=== PATIENT | female | born 1980 | race Caucasian/White ===

== ENCOUNTER 2019-12-05 02:37 | Outpatient (CLI) | payer OTHER, SELFPAY ==
[2019-12-05 18:39] LABS: SARS-CoV-2 RNA PCR Negative
== END 2019-12-05 02:38 | disposition home or self-care (01) ==
LOC: ANHCOVIDDT 02:37
PROVIDERS: PCP Physician Assistant; Visit Provider Internal Medicine Gastroenterology
DX: Z01.812 Encounter for preprocedural laboratory examination (principal); Z20.828 Contact with and (suspected) exposure to other viral communicable diseases
CPT/HCPCS: 87635; C9803; U0003

== ENCOUNTER 2019-12-07 00:09 | Day surgery (SDC) | payer OTHER, SELFPAY ==
[2019-11-29 12:27] VITALS: BMI 36.3
--- NOTE | 2019-12-07 07:28 | WPDANESEPPF ---
Anes - Initial Pre Proc Eval Procedure: Operation Date: 12/07/19 08:30 Proposed Procedures p Colonoscopy - Edilberto Chow MD Date/Time: 12/07/19 07:28 Surgeon: Edilberto Chow MD Pre Op Diagnosis: Constipation Patient Data Age: 38 Gender: F Height: 1.68 m Weight: 102 kg Allergies Allergy/AdvReac Type Severity Reaction Status Date / Time No Known Allergies Allergy Unknown Unverified 12/07/19 07:37 Home Medications Medication Instructions Recorded Confirmed Type docusate sodium 100 mg PO DAILY PRN 11/29/19 11/29/19 History levothyroxine 125 mcg PO DAILY 11/29/19 11/29/19 History lovastatin 40 mg PO QPM 11/29/19 11/29/19 History norgestimate-ethinyl estradiol 1 tablet PO DAILY 11/29/19 11/29/19 History [Tri Femynor] Patient hx anesthesia problems: none Family hx anesthesia problems: none [facility] Past Medical History Medical History (Updated 12/07/19 @ 07:29 by Krishan Coto MD) Hypercholesterolemia Hypothyroidism Obesity Family History Family History (Updated 11/24/17 @ 14:06 by DOCTOR UNKNOWN) Father Hypertension Social History Social History Smoking status: Never smoker Alcohol intake: never Gender identity (if verbalized by the patient): Female Anes - Eval Final PreProcedure Day of Procedure 12/07/19 07:28 Patient weight: obese Heart: regular rate and rhythm Lungs: clear to auscultation and normal air movement Airway: Mallampati scale class II Neurological: alert and oriented Last oral intake: >/= 8 hours ASA classification: III Emergent: no Anesthetic plan: proceed Anesthesia type and monitoring: general GIVS Informed Consent: The patient's anesthetic plan and its attendant risks and benefits were discussed with the patient/family/POA. Questions were solicited and answers provided to the satisfaction of the patient/family/POA.
[2019-12-07] MEDS: LACTATED RINGERS 1,000 ML 150 ML IV CONT (07:36)
[2019-12-07 07:37] VITALS: BP 112/75; PULSE 105; RESP 16; O2SAT 100; BMI 35.5
--- NOTE | 2019-12-07 08:47 | WPDGICN ---
Assessment and Plan Assessment and plan (1) Rectal pain: Code(s): K62.89 - Other specified diseases of anus and rectum Status: Acute Assessment and Plan: Rectal pain appears to be consistent with rectal spasms. Plan is for stool softeners a colonoscopy to evaluate more thoroughly. Further recommendations after endoscopy. (2) Constipation: Code(s): K59.00 - Constipation, unspecified Status: Acute Assessment and Plan: Patient is a change in bowel habits with constipation more frequently. Currently advised to take Colace on a daily basis. Further recommendations may be given after endoscopy. GI Consult Note Consult date/time: 12/07/19 08:47 HPI: Clarissa Cortés is a 38 year old female seen in evaluation at the request of BRITTANIE Willis. Patient complains of a 6 month history of rectal spasms. Rectal pain that is intense at times occurs intermittently. She states often this occurs shortly after a bowel movement. She also notes associated constipation that occurs at 1 time a month. She denies any bleeding. She denies any weight loss. Her family history is noncontributory. Review of Systems Review of Systems: All systems reviewed & are unremarkable except as noted in HPI and below PMFSH Past Medical History Medical History Hypercholesterolemia Hypothyroidism Obesity Family History Family History Father Hypertension Social History Social History Smoking status: Never smoker Alcohol intake: never Gender identity (if verbalized by the patient): Female Meds Home Medications and Allergies Home Medications Medication Instructions Recorded Confirmed Type docusate sodium 100 mg PO DAILY PRN 11/29/19 11/29/19 History levothyroxine 125 mcg PO DAILY 11/29/19 11/29/19 History lovastatin 40 mg PO QPM 11/29/19 11/29/19 History norgestimate-ethinyl estradiol 1 tablet PO DAILY 11/29/19 11/29/19 History [Tri Femynor] Allergies Allergy/AdvReac Type Severity Reaction Status Date / Time No Known Allergies Allergy Unknown Unverified 12/07/19 07:37 Vital Signs Vital Signs - 24 hr 08/21/20 07:37 Pulse Rate 105 H Respiratory Rate 16 Blood Pressure 112/75 Pulse Oximetry 100 Exam Narrative: Exam Narrative: Physical exam reveals patient to be alert. Vital signs stable. HEENT exam unremarkable. Lungs are clear to auscultation and percussion. Heart is without murmur or extra sounds. Abdominal exam bowel sounds are present soft nontender with no organomegaly. Digital external rectal exam is unremarkable.
[2019-12-07] MEDS: SIMETHICONE ORAL SUSPENSION 20 MG/0.3 ML 30 ML BOTTLE 0.6 ML IRRIGATION (09:17)
[2019-12-07 09:20] VITALS: BP 112/69; PULSE 84; RESP 14; O2SAT 98
[2019-12-07 09:30] VITALS: BP 119/72; PULSE 84; RESP 14; O2SAT 98
[2019-12-07 09:40] VITALS: BP 116/72; PULSE 84; RESP 15; O2SAT 100
== END 2019-12-07 09:51 | disposition home or self-care (01) ==
PROVIDERS: PCP Physician Assistant; Visit Provider Internal Medicine Gastroenterology
PROC: 0DJD8ZZ Inspection of Lower Intestinal Tract, Via Natural or Artificial Opening Endoscopic (ICD-10-PCS; CPT 45378; principal; 2019-12-07 08:30)
DX: K62.89 Other specified diseases of anus and rectum (principal); K59.00 Constipation, unspecified; K64.8 Other hemorrhoids; E78.00 Pure hypercholesterolemia, unspecified; E03.9 Hypothyroidism, unspecified; E66.9 Obesity, unspecified; Z68.35 Body mass index [BMI] 35.0-35.9, adult
CPT/HCPCS: 45378; J2704; J7120

== ENCOUNTER 2020-10-18 10:41 | Outpatient (CLI) | payer OTHER, SELFPAY ==
[2020-10-21 20:06] LABS: Triiodothyronine T3 Free 2.1 pg/mL (2.3-4.2)
[2020-10-21 20:39] LABS: Thyroid Peroxidase Antibodies 387 IU/mL (<9)
== END 2020-10-18 10:42 | disposition home or self-care (01) ==
PROVIDERS: PCP Physician Assistant; Visit Provider Advanced Practice Midwife
DX: E03.9 Hypothyroidism, unspecified (principal)
CPT/HCPCS: 36415; 84481; 86376

== ENCOUNTER 2022-02-16 07:42 | Outpatient (CLI) | payer OTHER, SELFPAY ==
--- NOTE | ~2022-02-16 | MM_ITS ---
EXAMINATION: MM screening sebastian BI w ashlie HISTORY: Screening TECHNIQUE: Craniocaudal and mediolateral oblique 3-D tomosynthesis images were obtained and synthetic 2-D images were generated. CAD analysis was submitted and interpreted. COMPARISON: No prior mammogram is available for comparison at this institution. BREAST PARENCHYMAL COMPOSITION: The breasts are heterogeneously dense, which may obscure small masses FINDINGS: There are asymmetries in the left breast. There are no suspicious masses, calcifications or architectural distortion in the right breast to suggest malignancy. IMPRESSION: 1. Left breast asymmetries. 2. Recommend comparison to outside mammograms. BI-RADS Category 0: Incomplete: Needs additional imaging evaluation. Reviewed, dictated and finalized at location A.
== END 2022-02-16 07:43 | disposition home or self-care (01) ==
PROVIDERS: PCP Physician Assistant; Visit Provider Advanced Practice Midwife
DX: Z12.31 Encounter for screening mammogram for malignant neoplasm of breast (principal); R92.8 Other abnormal and inconclusive findings on diagnostic imaging of breast
CPT/HCPCS: 77063; 77067

== ENCOUNTER 2022-03-09 13:52 | Outpatient (CLI) | payer OTHER, SELFPAY ==
--- NOTE | ~2022-03-09 | MM_ITS ---
EXAMINATION: MM diagnostic sebastian LT w ashlie HISTORY: Focal asymmetries reported in lower inner quadrant of left breast, middle third on 02/16/2022 screening mammogram TECHNIQUE: Additional 3-D tomosynthesis images of the left breast were performed and synthetic 2-D im ages were generated. CAD analysis was submitted and interpreted. COMPARISON: 02/16/2022 bilateral screening mammogram FINDINGS: No suspicious reproducible mass or architectural distortion is detected. IMPRESSION: 1. No mammographic evidence of malignancy 2. Routine annual mammographic screening is recommended BI-RADS Category 1: Negative Reviewed, dictated and finalized at location A. [employer]
== END 2022-03-09 13:53 ==
LOC: MICIMG 14:00
PROVIDERS: PCP Advanced Practice Midwife; Visit Provider Advanced Practice Midwife
DX: R92.8 Other abnormal and inconclusive findings on diagnostic imaging of breast (principal)
CPT/HCPCS: 77061; 77065; G0279

== ENCOUNTER 2023-01-27 07:58 | Outpatient (CLI) | payer OTHER, SELFPAY | END 2023-01-27 07:59 | disposition home or self-care (01) | LOC: ANHAUDASC 07:58 | PROVIDERS: PCP Advanced Practice Midwife; Visit Provider Otolaryngology | DX: H90.3 Sensorineural hearing loss, bilateral (principal) | CPT/HCPCS: 92557; 92567 ==

== ENCOUNTER 2023-09-02 07:50 | Outpatient (CLI) | payer OTHER, SELFPAY | END 2023-09-02 07:51 | disposition home or self-care (01) | LOC: ANHAUDASC 07:59 | PROVIDERS: PCP Advanced Practice Midwife; Visit Provider Otolaryngology | DX: H90.6 Mixed conductive and sensorineural hearing loss, bilateral (principal); I65.23 Occlusion and stenosis of bilateral carotid arteries | CPT/HCPCS: 92557; 92567 ==

== ENCOUNTER 2023-10-07 07:30 | Outpatient (RCR) | payer SELFPAY | END 2023-12-22 23:59 | disposition home or self-care (01) | LOC: ANHAUDASC 07:30 | PROVIDERS: PCP Advanced Practice Midwife; Visit Provider Otolaryngology | DX: Z46.1 Encounter for fitting and adjustment of hearing aid (principal) | CPT/HCPCS: 99199; V5261 ==

== ENCOUNTER 2024-09-27 22:06 | Emergency (ER) | payer OTHER, SELFPAY ==
--- NOTE | ~2024-09-27 | CT_ITS ---
CT abdomen pelvis wo con Ordering provider: Abhijit Jeffery MD History: 43 years Female with . flank pain . Comparison: None. Technique: CT abdomen and pelvis without IV and without oral contrast. Automated exposure control and iterative reconstruction technique were employed. The dose-length product was 1354.61 mGy-cm. Findings: VISUALIZED LOWER CHEST: Bilateral dependent atelectatic changes UPPER ABDOMINAL ORGANS: Liver: Hepatomegaly. Gallbladder: Normal. Spleen: Normal. Stomach/duodenum: Normal. Pancreas: Normal. Adrenals: Normal. Kidneys: 5 mm lower ureteric stone with left hydroureter and moderate hydronephrotic changes. Stones are also seen in the left kidney lower pole with the largest measures 6 mm. PELVIC ORGANS: The bladder is underfilled. Uterus: Normal. There is BOWEL AND MESENTERY: Colon: No evidence of diverticulitis. Normal appendix. Small Bowel: Normal. No obstruction. Peritoneum/mesentery: No free air or free fluid. No mesenteric lymphadenopathy. RETROPERITONEUM: Normal aorta. No retroperitoneal lymphadenopathy. MUSCULOSKELETAL: Superficial soft tissues: The superficial soft tissues are normal. Bones: Age appropriate degenerative changes of the spine. Bilateral sacroiliacs. Bilateral hip osteoa rthritic changes. IMPRESSION: 1. Left lower ureteric stone with moderate hydronephrotic changes. 2. Stones in the left kidney. 3. Hepatomegaly. Reviewed, dictated and finalized at location A.
--- OUTSIDE RECORDS SUMMARY | 2024-09-27 22:09 | XMS_ITS | Data Portability ---
Author Organization [facility] José Sharon Address [address] [place] [address] Care Team Providers Care Site Identification Specialist Name Role Phone GINGER CHAPARRO Primary Care Provider Unavailab le Assessment Encounter Date Assessment Date Assessment LastModified by Organization Details LastModified Time 02/29/2024 02/29/2024 pap smear UTD [address] [facility] [facility]. Mammogram due still. ordered by [facility] eye exam: 2022 dentist exam: due. Not available 02/29/2024 09:32:24 Plan of Treatment Reminders Order Date Submit Date Provider Last Modified By Organization Details Last Modified Time Details Appointments ANY 15 2024 07:30A M BRITTANIE Ram Not available Not available Not available Lab HbA1c (hemoglob in A1c), blood 2023 024 [email or web address] [facility], [address] [facility], [facility], [place], [address], 05/24/2024 16:46:33 insulin, serum 2023 024 [email or web address] [facility], [address] [facility], [facility], [place], [address], 05/24/2024 16:46:24 CMP, serum or plasma 2023 024 [email or web address] [facility], [address] [facility], [facility], [place], [address], 05/24/2024 16:46:48 CBC w/ auto diff 2023 024 [email or web address] [facility], [address] [facility], [place], [address], 05/24/2024 16:46:43 TSH + free T4, serum 2023 024 [email or web address] [facility], [address] [facility], [address], [place], [address], 05/24/2024 16:46:29 lipid panel, serum 2023 024 [email or web address] [facility], [address] [facility], [address], [place], [address], 05/24/2024 16:46:53 CMP, serum or plasma 2023 024 DOUGLAS [facility], [address], [place], [address], 08/24/2023 03:36:48 CBC w/ auto diff 2023 024 DOUGLAS [facility], [address] [facility], [facility], [place], [address], 08/24/2023 03:36:49 HbA1c (hemoglob in A1c), blood 2023 024 DOUGLAS [facility], [address] [facility], [address], [place], [address], 08/24/2023 03:36:48 TSH + free T4, serum 2023 024 DOUGLAS [facility], [address] [facility], [facility], [place], [address], 08/24/2023 03:36:47 lipid panel, serum 2023 024 DOUGLAS [facility], [address], [address], [place], [address], 08/24/2023 03:36:47 TSH + free T4, serum 2014 015 [email or web address] [facility], [address], [address], [place], [address], 02/06/2015 17:31:37 Referral None recorded. Procedures None recorded. Surgeries None recorded. Imaging None recorded. Medication Orders atorvasta tin 80 mg tablet 2023 024 [id number], [address] [facility], [place], [address], 07/22/2023 16:53:05 levothyro xine 100 mcg tablet 2014 015 [email or web address] [id number], [address] [facility] [facility], [place], [address], 07/22/2023 16:27:39 Patient TargetsNo targets recorded. Patient Instructions Encounter Date Encounter Id Patient Instructions Last Modified By Organization Details Last Modified Time 02/06/2015 [id number] hypothyroidism: care instructions [email or web address] Not available 02/06/2015 17:31:43 02/04/2016 [id number] She said that sh e already had TEDp and 2 doses MMR vaccintions. [email or web address] Not available 02/04/2016 18:23:08 02/29/2024 [id number] A healthy lifestyle: care instructions Not available 02/29/2024 09:36:15 Reason for Referral None Reported. Results Created Date Observation Date Name Description Value Unit Range Abnormal Flag Note LastModifiedBy Organization Detail LastModifiedTime 08/23/1908/24/2023 TSH+F REE T4 TSH 8.250 uIU/m L 0.450- 4.500 above high normal Not Available [facility] ([facility]) [address] [place], [address], 08/24/2023 03:36:47 08/23/1908/24/2023 TSH+F REE T4 T4,free(dire ct) 1.10 NG/dL 0.82-1 .77 Not Available [facility] ([facility]) [address] [place], [address], 08/24/2023 03:36:47 08/23/19 24 08/24/2023 LIPID PANEL cholesterol, total 152 mg/dL 100-19 9 Not Available [facility] ([facility]) [address] [facility], [address], 08/24/2023 03:36:47 08/23/19 24 08/24/2023 LIPID PANEL triglyceride s 158 mg/dL 0-149 above high normal Not Available [facility] ([facility]) [address] [facility] [place], [address], 08/24/2023 03:36:47 08/23/19 24 08/24/2023 LIPID PANEL HDL cholesterol 47 mg/dL >39 Not Available [facility] ([facility]) [address] [facility] [place], [address], 08/24/2023 03:36:47 08/23/19 24 08/24/2023 LIPID PANEL VLDL cholesterol edwrad 27 mg/dL 5-40 Not Available [facility] ([facility]) [address] [place], [address], 08/24/2023 03:36:47 08/23/19 24 08/24/2023 LIPID PANEL LDL chol calc ([facility]) 78 mg/dL 0-99 Not Available [facility] ([facility]) [address] [facility], [address], 08/24/2023 03:36:47 08/23/19 24 08/24/2023 COMP. METAB OLIC PANEL (14) glucose 110 mg/dL 70-99 above high normal Not Available [facility] ([facility]) [address] [facility] [place], [address], 08/24/2023 03:36:48 08/23/19 24 08/24/2023 COMP. METAB OLIC PANEL (14) BUN 14 mg/dL 6-24 Not Available [facility] ([facility]) [address] [place], [address], 08/24/2023 03:36:48 08/23/19 24 08/24/2023 COMP. METAB OLIC PANEL (14) creatinine 0.83 mg/dL 0.57-1 .00 Not Available [facility] ([facility]) [address] [facility], [place], [address], 08/24/2023 03:36:48 08/23/19 24 08/24/2023 COMP. METAB OLIC PANEL (14) eGFR 89 mL/mi n/1.7 3 >59 Not Available [facility] ([facility]) [address] [facility], [place], [address], 08/24/2023 03:36:48 08/23/19 24 08/24/2023 COMP. METAB OLIC PANEL (14) BUN/creatini ne ratio 17 9-23 Not Available [facility] ([facility]) [address] [facility], [place], [address], 08/24/2023 03:36:48 08/23/19 24 08/24/2023 COMP. METAB OLIC PANEL (14) sodium 143 mmol/ L 134-14 4 Not Available [facility] ([facility]) [address] [place], [address], 08/24/2023 03:36:48 08/23/19 24 08/24/2023 COMP. METAB OLIC PANEL (14) potassium 4.2 mmol/ L 3.5-5. 2 Not Available [facility] ([facility]) [address] [facility], [place], [address], 08/24/2023 03:36:48 08/23/19 24 08/24/2023 COMP. METAB OLIC PANEL (14) chloride 106 mmol/ L 96-106 Not Available [facility] ([facility]) [address] [facility], [place], [address], 08/24/2023 03:36:48 08/23/19 24 08/24/2023 COMP. METAB OLIC PANEL (14) carbon dioxide, total 25 mmol/ L 20-29 Not Available [facility] ([facility]) [address] [facility], [address], 08/24/2023 03:36:48 08/23/19 24 08/24/2023 COMP. METAB OLIC PANEL (14) calcium 9.2 mg/dL 8.7-10 .2 Not Available [facility] ([facility]) [address] [facility], [place], [address], 08/24/2023 03:36:48 08/23/19 24 08/24/2023 COMP. METAB OLIC PANEL (14) protein, total 7.0 g/dL 6.0-8. 5 Not Available [facility] ([facility]) [address], [place], [address], 08/24/2023 03:36:48 08/23/19 24 08/24/2023 COMP. METAB OLIC PANEL (14) albumin 4.3 g/dL 3.9-4. 9 Not Available [facility] ([facility]) [address] [facility], [address], 08/24/2023 03:36:48 08/23/19 24 08/24/2023 COMP. METAB OLIC PANEL (14) globulin, total 2.7 g/dL 1.5-4. 5 Not Available [facility] ([facility]) [address] [facility], [address], 08/24/2023 03:36:48 08/23/19 24 08/24/2023 COMP. METAB OLIC PANEL (14) A/G ratio 1.6 1.2-2. 2 Not Available [facility] ([facility]) [address] [facility], [address], 08/24/2023 03:36:48 08/23/19 24 08/24/2023 COMP. METAB OLIC PANEL (14) bilirubin, total 0.7 mg/dL 0.0-1. 2 Not Available [facility] ([facility]) [address] [place], [address], 08/24/2023 03:36:48 08/23/19 24 08/24/2023 COMP. METAB OLIC PANEL (14) alkaline phosphatase 51 IU/L 44-121 Not Available [facility] ([facility]) [address] [place], [address], 08/24/2023 03:36:48 08/23/19 24 08/24/2023 COMP. METAB OLIC PANEL (14) AST (SGOT) 17 IU/L 0-40 Not Available [facility] ([facility]) [address] [facility], [place], [address], 08/24/2023 03:36:48 08/23/19 24 08/24/2023 COMP. METAB OLIC PANEL (14) ALT (SGPT) 27 IU/L 0-32 Not Available [facility] ([facility]) [address] [place], [address], 08/24/2023 03:36:48 08/23/19 24 08/24/2023 HEMOG LOBIN A1C hemoglobin A1C 5.9 % 4.8-5. 6 above high normal Predi abete s: 5.7 - 6.4 Diabe leonardo: >6.4 Glyce celina contr ol for adult s with diabe leonardo: <7.0 Not Available [facility] ([facility]) [address] [place], [address], 08/24/2023 03:36:48 08/23/19 24 08/24/2023 CBC WITH DIFFE RENTI AL/PL ATELE T WBC 4.4 x10e3 /uL 3.4-10 .8 Not Available [facility] ([facility]) [address] [place], [address], 08/24/2023 03:36:49 08/23/19 24 08/24/2023 CBC WITH DIFFE RENTI AL/PL ATELE T RBC 4.57 x10e6 /uL 3.77-5 .28 Not Available [facility] ([facility]) [address] [place], [address], 08/24/2023 03:36:49 08/23/19 24 08/24/2023 CBC WITH DIFFE RENTI AL/PL ATELE T hemoglobin 13.2 g/dL 11.1-1 5.9 Not Available [facility] ([facility]) [address] [place], [address], 08/24/2023 03:36:49 08/23/1908/24/2023 CBC WITH DIFFE RENTI AL/PL ATELE T hematocrit 41.0 % 34.0-4 6.6 Not Available [facility] ([facility]) [address] [place], [address], 08/24/2023 03:36:49 08/23/1908/24/2023 CBC WITH DIFFE RENTI AL/PL ATELE T MCV 90 fL 79-97 Not Available [facility] ([facility]) [address] [place], [address], 08/24/2023 03:36:49 08/23/1908/24/2023 CBC WITH DIFFE RENTI AL/PL ATELE T MCH 28.9 pg 26.6-3 3.0 Not Available [facility] ([facility]) [address] [place], [address], 08/24/2023 03:36:49 08/23/1908/24/2023 CBC WITH DIFFE RENTI AL/PL ATELE T MCHC 32.2 g/dL 31.5-3 5.7 Not Available [facility] ([facility]) [address] [place], [address], 08/24/2023 03:36:49 08/23/19 24 08/24/2023 CBC WITH DIFFE RENTI AL/PL ATELE T RDW 13.1 % 11.7-1 5.4 Not Available [facility] ([facility]) [address] [facility], [place], [address], 08/24/2023 03:36:49 08/23/19 24 08/24/2023 CBC WITH DIFFE RENTI AL/PL ATELE T platelets 184 x10e3 /uL 150-45 0 Not Available [facility] ([facility]) [address] [facility], [place], [address], 08/24/2023 03:36:49 08/23/19 24 08/24/2023 CBC WITH DIFFE RENTI AL/PL ATELE T neutrophils 62 % notest ab. Not Available [facility] ([facility]) [address] [facility], [place], [address], 08/24/2023 03:36:49 08/23/19 24 08/24/2023 CBC WITH DIFFE RENTI AL/PL ATELE T lymphs 26 % notest ab. Not Available [facility] ([facility]) [address] [facility], [place], [address], 08/24/2023 03:36:49 08/23/19 24 08/24/2023 CBC WITH DIFFE RENTI AL/PL ATELE T monocytes 8 % notest ab. Not Available [facility] ([facility]) [address] [facility], [place], [address], 08/24/2023 03:36:49 08/23/19 24 08/24/2023 CBC WITH DIFFE RENTI AL/PL ATELE T eos 3 % notest ab. Not Available [facility] ([facility]) [address] [facility], [place], [address], 08/24/2023 03:36:49 08/23/19 24 08/24/2023 CBC WITH DIFFE RENTI AL/PL ATELE T basos 1 % notest ab. Not Available [facility] ([facility]) [address] [facility], [place], [address], 08/24/2023 03:36:49 08/23/19 24 08/24/2023 CBC WITH DIFFE RENTI AL/PL ATELE T neutrophils (absolute) 2.7 x10e3 /uL 1.4-7. 0 Not Available [facility] ([facility]) [address] [facility], [place], [address], 08/24/2023 03:36:49 08/23/19 24 08/24/2023 CBC WITH DIFFE RENTI AL/PL ATELE T lymphs (absolute) 1.1 x10e3 /uL 0.7-3. 1 Not Available [facility] ([facility]) [address] [facility], [place], [address], 08/24/2023 03:36:49 08/23/19 24 08/24/2023 CBC WITH DIFFE RENTI AL/PL ATELE T monocytes(ab solute) 0.3 x10e3 /uL 0.1-0. 9 Not Available [facility] ([facility]) [address] [facility], [place], [address], 08/24/2023 03:36:49 08/23/19 24 08/24/2023 CBC WITH DIFFE RENTI AL/PL ATELE T eos (absolute) 0.1 x10e3 /uL 0.0-0. 4 Not Available [facility] ([facility]) [address] [place], [address], 08/24/2023 03:36:49 08/23/19 24 08/24/2023 CBC WITH DIFFE RENTI AL/PL ATELE T baso (absolute) 0.0 x10e3 /uL 0.0-0. 2 Not Available [facility] ([facility]) [address] [place], [address], 08/24/2023 03:36:49 08/23/19 24 08/24/2023 CBC WITH DIFFE RENTI AL/PL ATELE T immature granulocytes 0 % notest ab. Not Available [facility] ([facility]) [address] [place], [address], 08/24/2023 03:36:49 08/23/19 24 08/24/2023 CBC WITH DIFFE RENTI AL/PL ATELE T immature grans (abs) 0.0 x10e3 /uL 0.0-0. 1 Not Available [facility] ([facility]) [address] [place], [address], 08/24/2023 03:36:49 06/26/19 25 06/26/2024 TSH+F REE T4 TSH 23.200 uIU/m L 0.450- 4.500 above high normal Not Available [facility] ([facility]) [address] [place], [address], 06/26/2024 11:08:20 06/26/19 25 06/26/2024 TSH+F REE T4 T4,free(dire ct) 1.06 NG/dL 0.82-1 .77 Not Available [facility] ([facility]) [address] [place], [address], 06/26/2024 11:08:20 06/26/19 25 06/26/2024 LIPID PANEL cholesterol, total 184 mg/dL 100-19 9 Not Available [facility] ([facility]) [address] [place], [address], 06/26/2024 11:08:21 06/26/19 25 06/26/2024 LIPID PANEL triglyceride s 215 mg/dL 0-149 above high normal Not Available [facility] ([facility]) [address] [place], [address], 06/26/2024 11:08:21 06/26/19 25 06/26/2024 LIPID PANEL HDL cholesterol 50 mg/dL >39 Not Available [facility] ([facility]) [address] [place], [address], 06/26/2024 11:08:21 06/26/19 25 06/26/2024 LIPID PANEL VLDL cholesterol edward 37 mg/dL 5-40 Not Available [facility] ([facility]) [address] [facility] [place], [address], 06/26/2024 11:08:21 06/26/19 25 06/26/2024 LIPID PANEL LDL chol calc ([facility]) 97 mg/dL 0-99 Not Available [facility] ([facility]) [address] [place], [address], 06/26/2024 11:08:21 06/26/19 25 06/26/2024 COMP. METAB OLIC PANEL (14) glucose 108 mg/dL 70-99 above high normal Not Available [facility] ([facility]) [address] [place], [address], 06/26/2024 11:08:22 06/26/19 25 06/26/2024 COMP. METAB OLIC PANEL (14) BUN 12 mg/dL 6-24 Not Available [facility] ([facility]) [address] [place], [address], 06/26/2024 11:08:22 06/26/19 25 06/26/2024 COMP. METAB OLIC PANEL (14) creatinine 0.89 mg/dL 0.57-1 .00 Not Available [facility] ([facility]) [address] [place], [address], 06/26/2024 11:08:22 06/26/19 25 06/26/2024 COMP. METAB OLIC PANEL (14) eGFR 81 mL/mi n/1.7 3 >59 Not Available [facility] ([facility]) [address] [place], [address], 06/26/2024 11:08:22 06/26/19 25 06/26/2024 COMP. METAB OLIC PANEL (14) BUN/creatini ne ratio 13 9-23 Not Available [facility] ([facility]) [address] [facility] [place], [address], 06/26/2024 11:08:22 06/26/19 25 06/26/2024 COMP. METAB OLIC PANEL (14) sodium 144 mmol/ L 134-14 4 Not Available [facility] ([facility]) [address] [facility] [place], [address], 06/26/2024 11:08:22 06/26/19 25 06/26/2024 COMP. METAB OLIC PANEL (14) potassium 4.5 mmol/ L 3.5-5. 2 Not Available [facility] ([facility]) [address] [facility], [place], [address], 06/26/2024 11:08:22 06/26/19 25 06/26/2024 COMP. METAB OLIC PANEL (14) chloride 103 mmol/ L 96-106 Not Available [facility] ([facility]) [address] [facility] [place], [address], 06/26/2024 11:08:22 06/26/19 25 06/26/2024 COMP. METAB OLIC PANEL (14) carbon dioxide, total 25 mmol/ L 20-29 Not Available [facility] ([facility]) [address] [facility] [place], [address], 06/26/2024 11:08:22 06/26/19 25 06/26/2024 COMP. METAB OLIC PANEL (14) calcium 9.4 mg/dL 8.7-10 .2 Not Available [facility] ([facility]) [address] [facility] [place], [address], 06/26/2024 11:08:22 06/26/19 25 06/26/2024 COMP. METAB OLIC PANEL (14) protein, total 7.3 g/dL 6.0-8. 5 Not Available [facility] ([facility]) [address] [place], [address], 06/26/2024 11:08:22 06/26/19 25 06/26/2024 COMP. METAB OLIC PANEL (14) albumin 4.5 g/dL 3.9-4. 9 Not Available [facility] ([facility]) [address] [facility], [address], 06/26/2024 11:08:22 06/26/19 25 06/26/2024 COMP. METAB OLIC PANEL (14) globulin, total 2.8 g/dL 1.5-4. 5 Not Available [facility] ([facility]) [address] [place], [address], 06/26/2024 11:08:22 06/26/19 25 06/26/2024 COMP. METAB OLIC PANEL (14) bilirubin, total 0.6 mg/dL 0.0-1. 2 Not Available [facility] ([facility]) [address] [place], [address], 06/26/2024 11:08:22 06/26/19 25 06/26/2024 COMP. METAB OLIC PANEL (14) alkaline phosphatase 69 IU/L 44-121 Not Available [facility] ([facility]) [address] [facility], [address], 06/26/2024 11:08:22 06/26/19 25 06/26/2024 COMP. METAB OLIC PANEL (14) AST (SGOT) 12 IU/L 0-40 Not Available [facility] ([facility]) [address] [place], [address], 06/26/2024 11:08:22 06/26/19 25 06/26/2024 COMP. METAB OLIC PANEL (14) ALT (SGPT) 19 IU/L 0-32 Not Available [facility] ([facility]) [address] [facility], [place], [address], 06/26/2024 11:08:22 06/26/19 25 06/26/2024 HEMOG LOBIN A1C hemoglobin A1C 5.9 % 4.8-5. 6 above high normal Predi abete s: 5.7 - 6.4 Diabe leonardo: >6.4 Glyce celina contr ol for adult s with diabe leonardo: <7.0 Not Available [facility] ([facility]) [address] [facility], [place], [address], 06/26/2024 11:08:24 06/26/19 25 06/26/2024 INSUL IN insulin 29.2 uIU/m L 2.6-24 .9 above high normal Not Available [facility] ([facility]) [address] [facility], [place], [address], 06/26/2024 11:08:25 06/26/19 25 06/26/2024 CBC WITH DIFFE RENTI AL/PL ATELE T WBC 5.0 x10e3 /uL 3.4-10 .8 Not Available [facility] ([facility]) [address] [facility], [place], [address], 06/26/2024 11:08:26 06/26/19 25 06/26/2024 CBC WITH DIFFE RENTI AL/PL ATELE T RBC 4.68 x10e6 /uL 3.77-5 .28 Not Available [facility] ([facility]) [address] [place], [address], 06/26/2024 11:08:26 06/26/19 25 06/26/2024 CBC WITH DIFFE RENTI AL/PL ATELE T hemoglobin 13.7 g/dL 11.1-1 5.9 Not Available [facility] ([facility]) [address] [place], [address], 06/26/2024 11:08:26 06/26/19 25 06/26/2024 CBC WITH DIFFE RENTI AL/PL ATELE T hematocrit 43.3 % 34.0-4 6.6 Not Available [facility] ([facility]) [address] [facility], [place], [address], 06/26/2024 11:08:26 06/26/19 25 06/26/2024 CBC WITH DIFFE RENTI AL/PL ATELE T MCV 93 fL 79-97 Not Available [facility] ([facility]) [address] [facility], [place], [address], 06/26/2024 11:08:26 06/26/19 25 06/26/2024 CBC WITH DIFFE RENTI AL/PL ATELE T MCH 29.3 pg 26.6-3 3.0 Not Available [facility] ([facility]) [address] [facility], [place], [address], 06/26/2024 11:08:26 06/26/19 25 06/26/2024 CBC WITH DIFFE RENTI AL/PL ATELE T MCHC 31.6 g/dL 31.5-3 5.7 Not Available [facility] ([facility]) [address] [place], [address], 06/26/2024 11:08:26 06/26/19 25 06/26/2024 CBC WITH DIFFE RENTI AL/PL ATELE T RDW 12.6 % 11.7-1 5.4 Not Available [facility] ([facility]) [address] [place], [address], 06/26/2024 11:08:26 06/26/19 25 06/26/2024 CBC WITH DIFFE RENTI AL/PL ATELE T platelets 239 x10e3 /uL 150-45 0 Not Available [facility] ([facility]) [address] [place], [address], 06/26/2024 11:08:26 06/26/19 25 06/26/2024 CBC WITH DIFFE RENTI AL/PL ATELE T neutrophils 61 % notest ab. Not Available [facility] ([facility]) [address] [facility], [place], [address], 06/26/2024 11:08:26 06/26/19 25 06/26/2024 CBC WITH DIFFE RENTI AL/PL ATELE T lymphs 29 % notest ab. Not Available [facility] ([facility]) [address] [facility], [place], [address], 06/26/2024 11:08:26 06/26/19 25 06/26/2024 CBC WITH DIFFE RENTI AL/PL ATELE T monocytes 5 % notest ab. Not Available [facility] ([facility]) [address] [facility], [place], [address], 06/26/2024 11:08:26 06/26/19 25 06/26/2024 CBC WITH DIFFE RENTI AL/PL ATELE T eos 3 % notest ab. Not Available [facility] ([facility]) [address] [facility], [place], [address], 06/26/2024 11:08:26 06/26/19 25 06/26/2024 CBC WITH DIFFE RENTI AL/PL ATELE T basos 1 % notest ab. Not Available [facility] ([facility]) [address] [place], [address], 06/26/2024 11:08:26 06/26/19 25 06/26/2024 CBC WITH DIFFE RENTI AL/PL ATELE T neutrophils (absolute) 3.1 x10e3 /uL 1.4-7. 0 Not Available [facility] ([facility]) [address] [facility], [place], [address], 06/26/2024 11:08:26 06/26/19 25 06/26/2024 CBC WITH DIFFE RENTI AL/PL ATELE T lymphs (absolute) 1.4 x10e3 /uL 0.7-3. 1 Not Available [facility] ([facility]) [address] [facility], [place], [address], 06/26/2024 11:08:26 06/26/19 25 06/26/2024 CBC WITH DIFFE RENTI AL/PL ATELE T monocytes(ab solute) 0.3 x10e3 /uL 0.1-0. 9 Not Available [facility] ([facility]) [address] [facility], [place], [address], 06/26/2024 11:08:26 06/26/19 25 06/26/2024 CBC WITH DIFFE RENTI AL/PL ATELE T eos (absolute) 0.2 x10e3 /uL 0.0-0. 4 Not Available [facility] ([facility]) [address] [facility], [place], [address], 06/26/2024 11:08:26 06/26/19 25 06/26/2024 CBC WITH DIFFE RENTI AL/PL ATELE T baso (absolute) 0.0 x10e3 /uL 0.0-0. 2 Not Available [facility] ([facility]) [address] [facility], [place], [address], 06/26/2024 11:08:26 06/26/19 25 06/26/2024 CBC WITH DIFFE RENTI AL/PL ATELE T immature granulocytes 1 % notest ab. Not Available [facility] ([facility]) [address] [facility], [place], [address], 06/26/2024 11:08:26 06/26/19 25 06/26/2024 CBC WITH DIFFE RENTI AL/PL ATELE T immature grans (abs) 0.0 x10e3 /uL 0.0-0. 1 Not Available [facility] ([facility]) [address] [facility], [place], [address], 06/26/2024 11:08:26 Result Notes None recorded. Problems Name Problem SNOMED Code Status Onset Date Resolution Date Notes Provider Name and Address Organization Details Recorded Time Hyperlipidemia 29812568 Active 2023 BRITTANIE Ram Attn: Jeremías ogden,[address] [facility], [place], [address], [facility] 4 00:48:25 Overactive urinary bladder [id number] Active 2023 BRITTANIE Ram Attn: Jeremías ogden,[address] [place], [address], [facility] 4 00:48:27 Long-term drug therapy Active 2023 BRITTANIE Ram Attn: Jeremías ogden,[address] [place], [address], [facility] 4 00:48:30 Obesity 785360526 Active 2023 BRITTANIE Ram Attn: Jeremías ogden,[address] [place], [address], [facility] 4 08:23:19 Body mass index 30+ - obesity 555629656 Active 2023 BRITTANIE Ram Attn: Jeremías ogden,[address] [place], [address], [facility] 4 08:23:19 Prediabetes 396987831 Active 2023 BRITTANIE Ram Attn: Jeremías ogden,[address] [place], [address], [facility] 4 08:23:56 Hypothyroidism 31140679 Active Riddhi Marc MD Attn: Jeremías ogden,[address] [place], [address], [facility] 5 16:59:49 Problem Notes None recorded. Procedures Surgical History Date Name Laterality Status Provider Name and Address Organization Details Recorded Time D & c after delivery completed Miguel Gross MA [facility] 07/22/2023 17:20:23 Imaging Results None recorded. Procedure Notes None recorded. Medical Equipment None Reported. Allergies No known drug allergies Medications Name Sig Start Date Stop Date Status Note LastModified by Organization Details LastModified Time levothyroxi ne 137 mcg tablet TAKE 1 TABLET BY MOUTH EVERY DAY active Not Available Not Available No t Available atorvastati n 80 mg tablet TAKE 1 TABLET BY MOUTH EVERY DAY active Not Available Not Available No t Available ofloxacin 0.3 % eye drops INSTILL 2 DROPS INTO THE EAR(S) THREE TIMES A DAY 07/21 completed Not Available Not Available Not Available methylpredn isolone 4 mg tablet TAKE 1 TABLET BY MOUTH TWICE A DAY 07/21 completed Not Available Not Available Not Available ciprofloxac in 500 mg tablet TAKE 1 TABLET EVERY 12 HOURS BY ORAL ROUTE, FOR UTI. active Not Available Not Available No t Available levothyroxi ne 100 mcg tablet TAKE ONE TABLET BY MOUTH ONCE DAILY 07/21 completed Not Available Not Available Not Available ofloxacin 0.3 % ear drops USE 2 DROPS IN LEFT EAR 4 TIMES DAILY FOR 7 DAYS 07/21 completed Not Available Not Available Not Available cephalexin 500 mg capsule TAKE 1 CAPSULE BY MOUTH EVERY 12 HOURS FOR 7 DAYS 07/21 completed Not Available Not Available Not Available clotrimazol e 1 % topical solution APPLY TOPICALLY 3 TIMES A DAY 07/21 completed Not Available Not Available Not Available progesteron e micronized 200 mg capsule IF TEST IS NEGATIVE TAKE 1 TAB X10 DAYS EVERY 3 MONTHS IF PERIOD DOES NOT OCCUR ON ITS OWN active Not Available Not Available No t Available amoxicillin 875 mg-potassiu m clavulanate 125 mg tablet TAKE 1 TABLET BY MOUTH TWICE A DAY 07/21 completed Not Available Not Available Not Available amoxicillin 500 mg-potassiu m clavulanate 125 mg tablet 07/21 completed Not Available Not Available Not Available neomycin-po lymyxin-hyd rocort 3.5 mg-10,000 unit/mL-1 % ear drops,susp PLACE 2 DROPS IN LEFT EAR 4 TIMES A DAY 07/21 completed Not Available Not Available Not Available ciprofloxac in 0.3 %-dexametha sone 0.1 % ear drops,suspe nsion INSTILL 4 DROPS INTO AFFECTED EAR(S) TWICE A DAY FOR 7 DAYS 07/21 completed Not Available Not Available Not Available Tri-Sprinte c (28) 0.18 mg(7)/0.215 mg(7)/0.25 mg(7)-0.035 mg tablet 07/21 completed Not Available Not Available Not Available solifenacin 10 mg tablet TAKE 1 TABLET BY MOUTH EVERY DAY active Not Available Not Available No t Available fluocinolon e acetonide oil 0.01 % ear drops PLACE 5 DROPS INTO THE EAR(S) EVERY NIGHT AT BEDTIME NEEDED FOR 7 DAYS-USE 1 WEEK ON/1 WEEK OFF 02/28 completed Not Available Not Available Not Available Vitals Date Recorded Oxygen saturation Oxygen saturation in Arterial blood by Pulse oximetry Body weight Heart rate Body mass index (BMI) Body height Body temperature Systolic blood pressure Diastolic blood pressure Provider Name and Address Organization Details Last Updated DateTime 5 99 % 99 % 96962.0 47706 g 107 /min 33.1 kg/m2 166.37 cm 97.6 [degF] 114 mm[Hg] 82 mm[Hg] Foster Bro MA [facility] 5 16:30:01 Date Recorded Systolic blood pressure Diastolic blood pressure Systolic blood pressure Diastolic blood pressure Provider Name and Address Organization Details Last Updated DateTime 07/22/2023 130 mm[Hg] 84 mm[Hg] 128 mm[Hg] 84 mm[Hg] BRITTANIE Ram Attn: Accounting ,[address] [place], [address] , [facility] 4 16:52:19 Date Recorded Body height Body mass index (BMI) Body weight Oxygen saturation Oxygen saturation in Arterial blood by Pulse oximetry Heart rate Respiratory rate Systolic blood pressure Diastolic blood pressure Provider Name and Address Organization Details Last Updated DateTime 4 165.1 cm 35.4 kg/m2 80505.1 7 g 97 % 97 % 108 /min 18 /min 118 mm[Hg] 88 mm[Hg] Miguel Gross MA [facility] 4 16:32:58 Date Recorded Body height Body weight Body mass index (BMI) Body temperature Oxygen saturation Oxygen saturation in Arterial blood by Pulse oximetry Heart rate Systolic blood pressure Diastolic blood pressure Provider Name and Address Organization Details Last Updated DateTime 6 166.37 cm 27528.0 3 g 33.8 kg/m2 98.1 [degF] 100 % 100 % 112 /min 118 mm[Hg] 86 mm[Hg] Foster Bro MA [facility] 6 17:36:38 Date Recorded Body weight Oxygen saturation Oxygen saturation in Arterial blood by Pulse oximetry Body height Body mass index (BMI) Body temperature Heart rate Systolic blood pressure Diastolic blood pressure Provider Name and Address Organization Details Last Updated DateTime 5 78590.7 92332 g 99 % 99 % 166.37 cm 32.7 kg/m2 98.2 [degF] 109 /min 106 mm[Hg] 78 mm[Hg] Foster Bro MA [facility] 5 16:03:14 Date Recorded Systolic blood pressure Diastolic blood pressure Provider Name and Address Organization Details Last Updated DateTime 02/29/2024 120 mm[Hg] 84 mm[Hg] BRITTANIE Ram Attn: Accounting,[address] [place], [address], [facility] 02/29/2024 09:37:13 Date Recorded Body height Body mass index (BMI) Body weight Respiratory rate Oxygen saturation Oxygen saturation in Arterial blood by Pulse oximetry Heart rate Systolic blood pressure Diastolic blood pressure Provider Name and Address Organization Details Last Updated DateTime 4 165.1 cm 35.4 kg/m2 22123.1 7 g 18 /min 97 % 97 % 110 /min 126 mm[Hg] 82 mm[Hg] Miguel Gross MA [facility] 4 09:16:17 Social History Question Answer Notes LastModified by Organizat ion Details LastModified Time Tobacco Smoking Status Never Smoker Foster Bro MA null, [facility] 06/25/2014 16:30:01 Do You Have An Advance Directive? No Information not available 07/22/2023 Are You Blind Or Do You Have Difficulty Seeing? No Glasses Information not available 07/22/2023 What Is Your Level Of Caffeine Consumption? Occasional DECAF TEA Information not available 07/22/2023 In The 14 Days Before Symptom Onset, Have You Had Close Contact With A Laboratory-confi rmed COVID-19 While That Case Was Ill? No Information not available 07/22/2023 In The 14 Days Before Symptom Onset, Have You Had Close Contact With A Person Who Is Under Investigation For COVID-19 While That Person Was Ill? No Information not available 07/22/2023 Have You Been To An Area Known To Be High Risk For COVID-19? No Information not available 07/22/2023 Are You Deaf Or Do You Have Serious Difficulty Hearing? No Pt. States That She Was Supposed To Have Hearing Aids Information not available 07/22/2023 What Type Of Diet Are You Following? REGULAR Information not available 07/22/2023 Are There Any Guns Present In Your Home? No Information not available 07/22/2023 What Was The Date Of Your Most Recent Tobacco Screening? 02/29/2024 Information not available 02/29/2024 What Is Your Relationship Status? Information not available 07/22/2023 Do You Use Your Seat Belt Or Car Seat Routinely? Yes Information not available 07/22/2023 Do You Have Smoke And Carbon Monoxide Detectors In Your Home? Yes Information not available 07/22/2023 Do You Use Sunscreen Routinely? No Information not available 07/22/2023 Has Tobacco Cessation Counseling Been Provided? No Information not available 07/22/2023 Sex: Female Functional Status Question Answer Note LastModified by Organizat ion Details LastModified Time Do you use any illicit or recreational drugs? No Information not available 07/22/2023 Do you or have you ever used any other forms of tobacco or nicotine? No Information not available 07/22/2023 What is your level of alcohol consumption? None Information not available 07/22/2023 Are you able to care for yourself? Yes Information n ot available 07/22/2023 What is your exercise level? Occasional Information not available 07/22/2023 Mental Status None recorded. Family History Relationship Description Onset Age of this Age Resolved Age Notes LastModified by Organization Details LastModified Time Brother Attention deficit hyperactivit y disorder [email or web address] Not available 07/21 17:20:36 Mother Hypertensive disorder [email or web address] Not available 2023 17:20:47 Mother Hypercholest erolemia tcarterma Not available 2023 17:20:59 Father Hypertensive disorder tcarterma Not available 2023 17:20:47 Father Hypercholest erolemia tcarterma Not available 2023 17:20:59 Medical History Condition Response Coronary Artery Disease N Other N High Blood Pressure N Atrial Fibrillation N Kidney or Bladder Problems N Thyroid Problems Y GI Problems N Depression N COPD N Blood Clots N Skin Problems N Anemia N Heart Attack (DC) N Anxiety Disorder N Diabetes N Muscle, Joint, or Bone Problems N Seizures/Epilepsy N Acid Reflux (GERD) N Cancer N Stroke N Asthma N Allergies N High Cholesterol Y Hepatitis N Liver Disease N Headaches N Heart Failure N Osteoporosis N Gynecological History Statement/Question Response Menses Monthly Y Flow Moderate Date of LMP 02/10/2024 LMP Approximate Obstetrics History GPAL:G 1 P 1 0 0 1 Type Value Multiple Births 0 Full Term 1 Induced 0 Spontaneous 0 Premature 0 Living 1 Total 1 Immunizations Vaccine Type Date Status Note Provider Nam e and Address Organization Details Recorded Time MMR 03/04/2015 completed SHERIF Wood, [place] - [facility] 02/28/2024 12:17:39 MMR 03/31/2015 SHERIF Martins, [place] - [facility] 02/28/2024 12:17:39 COVID-19, mRNA, LNP-S, PF, 30 mcg/0.3 mL dose 10/24/2020 SHERIF [place] [facility] 02/28/2024 12:17:39 COVID-19, mRNA, LNP-S, PF, 30 mcg/0.3 mL dose 11/14/2020 SHERIF [place] [facility] 02/28/2024 12:17:39 Tdap 03/04/2015 SHERIF [place], [place] [facility] 02/28/2024 12:17:39 Past Encounters Encounter ID Performer Location Encounter Start Date Encounter Closed Date Diagnosis/Indication Diagnosis SNOMED-CT Code Diagnosis ICD10 Code Diagnosis Note [id number] MD Quinn Lackey (Adult Med) [address] [place] [phone] 06/25/2014 15:50:12 06/26/2014 09:36:25 Adult health examination [id number] MD Quinn Lackey (Adult Med) [address] [place] [phone] 02/06/2015 15:43:57 02/06/2015 23:40:31 Adult health examination 204179422 Z00.00 Hypothyroidism 75599119 E03.9 [id number] MD Quinn Lackey (Adult Med) [address] [place] [phone] 02/04/2016 16:23:18 02/04/2016 18:22:23 History and physical examination, pre-employment 040313432 Z02.1 [id number] Juan Pablo Fernandes MD [facility] [employer] [address] [place] [phone] 07/22/2023 15:44:36 08/15/2023 15:49:38 Hypothyroidism 04429488 E03.9 stable on levothyrox ine 137mcg daily. due for updated TFT panel. Hyperlipidemia 95657624 E78.5 refill atorvastat in 80mg daily. fasting lipid panel is due Overactive urinary bladder 625700776 N32.81 stable on solifenaci n 10mg daily from Urology, Dr. Paredes Long-term drug therapy 236923016 Z79.899 routine cbc and cmp due Diabetes m ellitus screening 863464630 Z13.1 a1c annual screening due [id number] Juan Pablo Fernandes MD [employer] [address] [place] [phone] 02/29/2024 08:44:33 02/29/2024 13:15:47 Long-term drug therapy 222256464 Z79.899 CBC and CMP are due Hypothyroidism 28132861 E03.9 stable on levothyrox ine 137mcg daily. Due for updated thyroid function labs Hyperlipidemia 91430294 E78.5 refill atorvastat in 80mg daily. Fasting lipid panel due Body mass index 30+ - obesity 613125368 Z68.35 BMI is 35.4 Obesity 301889940 E66.9 discussed healthy diet, exercise, controllin g carbohydra leonardo and added sugars in the diet Prediabetes 115591460 R7 3.03 5.9% A1c on labs this summer. We have discussed decreasing simple carbs and added sugars in the diet to help to manage their prediabete s. Repeat A1c and fasting insulin due Overactive urinary bladder 477837486 N32.81 stable on solifenaci n 10mg daily from Urology, Dr. Paredes Adult [facility] th examination 699948920 Z00.01 annual wellness exam completed Health Concerns Section Related Observation LastModified by Organization Detai ls LastModified Time None Recorded Concern Status LastModified by Organization Details LastModified Time None Recorded Advance Directives Directive N: Payers Insurance Date Sequence Insurance Name Policy Number Policy Mosher Covered Member ID Mosher Member ID Guarantor Name 07/27/2023 1 [facility] [employer] [facility] [id number] [facility] 07/22/2023 1 [facility] [id number] [facility] [id number] [facility] 03/19/2024 1 [facility] [id number] [facility] [id number] [facility] Notes Date Note Type Note Provider Name and Address Organization Details Recorded Time 5 text/html 1. PE for the day care. 2. refillsof medications. Riddhi Marc MD Attn: Accounting,[address] [place], [address], [facility] 02/06/2015 17:00:14 4 text/html HyperlipidemiaReported bypatient.Notes:pt is stable on atorvastatin 80mg daily. due for fasting labs. she is taking medication as directedThyroidReported bypatient.Notes:pt is taking levothyroxine 137mcg daily. due for labs. pt takes medication for overactive bladder from the gyne. stable. noted improvement. BRITTANIE Ram Attn: Accounting,[address] [place], [address], [facility] 08/14/2023 00:49:38 4 text/html HyperlipidemiaReported bypatient.Notes:pt is stable on atorvastatin 80mg daily. due for fasting labs. she is taking medication as directedThyroidReported bypatient.Notes:pt is taking levothyroxine 137mcg daily. due for labs. pt takes medication for overactive bladder from the gyne. stable. noted improvement. BRITTANIE Ram Attn: Accounting,[address] [facility], [place], [address], [facility] 03/16/2024 15:51:40 OBGyn Episode No OBEpisode recorded.
--- OUTSIDE RECORDS SUMMARY | 2024-09-27 22:09 | XMS_ITS | Data Portability ---
Author Organization [place] - [facility], Main Office Address [address] [place] [address] Assessment Encounter Date Assessment Date Assessment LastModified by Organization Details LastModified Time 07/05/2022 07/05/2022 mammogram managed by gyne and repeat left was normal with dense tissue. Not available 07/05/2022 17:11:31 01/10/2023 01/10/2023 mammogram managed by gyne and repeat left was normal with dense tissue. Not available 01/10/2023 17:04:35 Plan of Treatment Reminders Order Date Submit Date Provider Last Modified By Organization Details Last Modified Time Details Appointments None recorded. Lab HbA1c (hemoglobin A1c), blood 2022 023 [email or web address] [facility], [address] [place] [address], [id number], 4 10:21:48 CMP, serum or plasma 2022 023 [email or web address] [facility], [address] [place] [address], [address], 4 10:21:48 CBC w/ auto diff 2022 023 [email or web address] [facility], [address] [place] [address], [address], 4 10:21:48 lipid panel, serum 2022 023 [email or web address] [facility], [address] [place] [address], [address], 4 10:21:48 TSH + free T4, serum 2022 023 [email or web address] [facility], [address] [place] [address], [address], 4 10:21:47 urinalysis, dipstick 2022 023 [email or web address] 9 [facility], [address] [facility] [address], [place], [address], 3 09:19:49 culture, urine 2022 023 [facility], [address] [place] [address], [address], 3 05:01:58 urinalysis, microscopic 2022 023 [facility], [address] [place], [address], 3 15:12:33 urinalysis, dipstick 2022 023 [email or web address] 9 [facility], [address] [facility] [address], [address], 3 11:27:13 HbA1c (hemoglobin A1c), blood 2022 023 [email or web address] [facility], [address] [place] [address], [address], 3 10:58:54 CMP, serum or plasma 2022 023 [email or web address] [facility], [address] [place] [address], [address], 3 10:59:08 lipid panel, serum 2022 023 [email or web address] [facility], [address] [place] [address] 2, [place], [address], 3 10:59:01 TSH + free T4, serum 2022 023 [email or web address] [facility], [address] [facility] [address], [place], [address], 3 14:46:37 Referral None recorded. Procedures None recorded. Surgeries None recorded. Imaging US, bladder 2022 023 [email or web address] 9 [facility] [place] [facility], [address] [facility] [address], [place], [address], 3 09:19:49 US, bladder 2022 023 [email or web address] 9 [facility] [address] [facility] [address], [place], [address], 3 11:27:14 Medication Orders solifenacin 10 mg tablet 2022 023 [facility] #[id number], [address] [place], [address], 3 09:20:08 solifenacin 10 mg tablet 2022 023 [facility] #[id number], [address] [place], [address], 3 10:45:43 Patient TargetsNo targets recorded. Patient InstructionsNo instructions recorded. Reason for Referral None Reported. Results Created Date Observation Date Name Description Value Unit Range Abnormal Flag Note LastModifiedBy Organization Detail LastModifiedTime 08/28/1908/27/2022 urina lysis , dipst ick Leukocytes (reference range: negative amandeep/ l) Negati ve Not Available [facility] [address] [facility] [address], [place], [address], 08/27/2022 09:03:39 08/28/19 23 08/27/2022 urina lysis , dipst ick Nitrite (reference rage: negative mg/dl) negati ve Not Available [facility] [address] [facility] [address], [place], [address], 08/27/2022 09:03:39 08/28/19 23 08/27/2022 urina lysis , dipst ick Urobilinogen (reference range: 0.2-1 mg/dl) 1 Not Available [facility] [address] [facility], [place], [address], 08/27/2022 09:03:39 08/28/1908/27/2022 urina lysis , dipst ick Protein (reference range: negative mg/dl) Negati ve Not Available [facility] [address] [facility], [place], [address], 08/27/2022 09:03:39 08/28/1908/27/2022 urina lysis , dipst ick pH (reference range: 5-7) 6.0 Not Available [facility]_ [facility] [address] [place] [address] [address] [facility], [place], [address], 08/27/2022 09:03:39 08/28/1908/27/2022 urina lysis , dipst ick Blood (reference range: negative Randolph/ l) Non-He molyze d: Trace Not Available [facility] [address] [place] [address] [address] [facility], [place], [address], 08/27/2022 09:03:39 08/28/19 23 08/27/2022 urina lysis , dipst ick Specific [place] (reference range: 1.005-1.030) 1.025 Not Available s _[facility] [address] [place] [address] [address], [place], [address], 08/27/2022 09:03:39 08/28/1908/27/2022 urina lysis , dipst ick Ketone (reference range: negative mg/dl) Negati ve Not Available [facility] [address], [place], [address], 08/27/2022 09:03:39 08/28/19 23 08/27/2022 urina lysis , dipst ick Bilirubin (reference range: negative mg/dl) Negati ve Not Available [facility] [address], [place], [address], 08/27/2022 09:03:39 08/28/1908/27/2022 urina lysis , dipst ick Glucose (reference range: negative mg/dl) Negati ve Not Available [facility] [address], [place], [address], 08/27/2022 09:03:39 08/28/19 23 08/27/2022 urina lysis , dipst ick Appearance Clear Not Available [facility] [address] [place] [address] [address], [place], [address], 08/27/2022 09:03:39 08/28/1908/27/2022 urina lysis , dipst ick Color Yellow Not Available [facility] [address], [place], [address], 08/27/2022 09:03:39 10/09/19 23 10/08/2022 urina lysis , dipst ick Leukocytes (reference range: negative amandeep/ l) Negati ve Not Available [facility] [address], [place], [address], 10/08/2022 09:00:00 10/09/1910/08/2022 urina lysis , dipst ick Nitrite (reference rage: negative mg/dl) negati ve Not Available [facility] [address], [place], [address], 10/08/2022 09:00:00 10/09/1910/08/2022 urina lysis , dipst ick Urobilinogen (reference range: 0.2-1 mg/dl) 0.2 Not Available [facility] [address], [place], [address], 10/08/2022 09:00:00 10/09/1910/08/2022 urina lysis , dipst ick Protein (reference range: negative mg/dl) Negati ve Not Available [facility] [address], [place], [address], 10/08/2022 09:00:00 10/09/1910/08/2022 urina lysis , dipst ick pH (reference range: 5-7) 6.0 Not Available s_ [facility] [address], [place], [address], 10/08/2022 09:00:00 10/09/1910/08/2022 urina lysis , dipst ick Blood (reference range: negative Randolph/ l) Non-He molyze d: Trace Not Available [facility] [address], [place], [address], 10/08/2022 09:00:00 10/09/1910/08/2022 urina lysis , dipst ick Specific [place] (reference range: 1.005-1.030) 1.020 Not Available [facility] [address] [facility] [address], [place], [address], 10/08/2022 09:00:00 10/09/19 23 10/08/2022 urina lysis , dipst ick Ketone (reference range: negative mg/dl) Negati ve Not Available [facility] [address] [facility], [place], [address], 10/08/2022 09:00:00 10/09/19 23 10/08/2022 urina lysis , dipst ick Bilirubin (reference range: negative mg/dl) Negati ve Not Available [facility] [address] [facility] [address], [place], [address], 10/08/2022 09:00:00 10/09/19 23 10/08/2022 urina lysis , dipst ick Glucose (reference range: negative mg/dl) Negati ve Not Available [facility] [address] [facility], [place], [address], 10/08/2022 09:00:00 10/09/19 23 10/08/2022 urina lysis , dipst ick Appearance Clear Not Available [facility] [address] [facility], [place], [address], 10/08/2022 09:00:00 10/09/19 23 10/08/2022 urina lysis , dipst ick Color Yellow Not Available [facility] [place] [facility] [address] [facility], [place], [address], 10/08/2022 09:00:00 03/04/20 22 02/16/2022 MAMMO , scree nancy, digit al, bilat eral No observ ation record ed. [id number] [place] [address] [address], [place], [address], 06/16/2022 10:47:53 08/28/19 23 08/27/2022 US, bladd er No observ ation record ed. [facility] [address], [place], [address], 08/30/2022 17:15:38 10/09/19 23 10/08/2022 US, bladd er No observ ation record ed. [email or web address] [facility] [address] [facility] [address], [place], [address], 10/11/2022 15:24:53 Result Notes None recorded. Problems Name Problem SNOMED Code Status Onset Date Resolution Date Notes Provider Name and Address Organization Details Recorded Time Intermitt ent dysphagia 34686024 Active 2021 Not Available [facility] 3 10:44:23 Gastroeso phageal reflux disease without esophagit is 216172066 Active 2021 BREONNA Griffin, [place] [employer] [facility] 3 14:55:15 Neck swelling 629593156 Active 2021 Not Available [facility] 3 10:44:24 Lower urinary tract symptoms 657726301 Active 2021 Not Available [facility] 3 10:44:24 Hypothyro idism 36773085 Active 2019 Not Available [facility] 3 10:44:24 Acute urinary tract infection 552094957 Active 2021 Not Available [employer] 3 10:44:24 Hyperlipi demia 70502537 Active 2019 Not Available [facility] 3 10:44:24 Eosinophi lic esophagit is caused by food 551450681 Active 2020 Resolved after eliminati on of gluten and milk- after 6 weeks of this diet, patient is to have EGD done to see if eosinophi lic has resolved Not Available [facility] 3 10:44:24 Impaired glucose tolerance 2165736 Active 2022 BRITTANIE Ram [address] [facility], [address], [place], [address] , [employer] 3 17:09:47 Increased frequency of urination 977681052 Active 2022 Noah Calles NP [address] [facility], [address], [place], [address] , [email or web address] [facility] 3 09:03:36 Abnormal urinalysi s 001433626 Active 2022 Noha Calles NP [address] [facility], [address], [place], [address] , [employer] 3 11:24:10 Urinary tract infection caused by Klebsiell a 22017476437 9100 Active 2022 Noah Calles NP [address] [facility], [address], [place], [address] , [employer] 3 15:23:09 Otitis externa of left ear 45159679059 89051 Active 2022 BRITTANIE Ram [address] [facility], [address] [facility], [place], [address] , [employer] 3 16:01:37 Problem Notes None recorded. Procedures Surgical History Date Name Laterality Status Provider Name and Address Organization Details Recorded Time 12/07/19 20 Date of Last Colonoscopy completed Not Available [facility] 06/16/2022 10:41:32 Imaging Results None recorded. Procedure Notes None recorded. Medical Equipment None Reported. Allergies Allergen ID Allergen Name Allergen Category Reaction Reaction Severity Criticality Documentation Date Start Date Code Code System Note Provider Name and Address Organization Details Recorded Time 12366 wheat gluten extract food Not available Not available Not available 06/16/2022 19728 81 RxNorm Not Available [facility] 3 10:47:34 Medications Name Sig Start Date Stop Date Status Note LastModified by Organization Details LastModified Time levothyroxi ne 137 mcg tablet TAKE 1 TABLET BY MOUTH EVERY DAY active Not Available Not Available No t Available atorvastati n 80 mg tablet TAKE 1 TABLET BY MOUTH EVERY EVENING active Not Available Not Available No t Available rabeprazole 20 mg tablet,surjit yed release 12/15 completed Not Available Not Available Not Available fluconazole 150 mg tablet TAKE 1 TABLET BY MOUTH ONCE ONE DOSE 12/14 completed Not Available Not Available Not Available lovastatin 40 mg tablet TAKE 1 TABLET BY MOUTH EVERY DAY active Not Available Not Available No t Available acetaminoph en 300 mg-codeine 30 mg tablet TAKE 1 OR 2 TABLETS BY MOUTH EVERY 6 HOURS NEEDED FOR PAIN 10/23 completed Not Available Not Available Not Available ciprofloxac in 500 mg tablet TAKE 1 TABLET BY MOUTH EVERY 12 HOURS 08/27 completed Not Available Not Available Not Available omeprazole 40 mg capsule,del ayed release TAKE 1 CAPSULE BY MOUTH EVERY MORNING TAKE 1/2 TO 1 HOUR BEFORE BREAKFAST DAILY 12/15 completed Not Available Not Available Not Available levothyroxi ne 100 mcg tablet TAKE 1 TABLET BY MOUTH DAILY 10/23 completed Not Available Not Available Not Available ofloxacin 0.3 % ear drops USE 2 DROPS IN LEFT EAR 4 TIMES DAILY FOR 7 DAYS active Not Available Not Available No t Available cephalexin 500 mg capsule TAKE 1 CAPSULE BY MOUTH EVERY 12 HOURS FOR 7 DAYS 01/07 completed Not Available Not Available Not Available levothyroxi ne 125 mcg tablet TAKE 1 TABLET BY MOUTH EVERY DAY 04/25 completed Not Available Not Available Not Available levothyroxi ne 150 mcg tablet TAKE 1 TABLET BY MOUTH EVERY DAY 02/11 completed Not Available Not Available Not Available docusate sodium 100 mg capsule TAKE 1 CAPSULE BY MOUTH EVERY DAY 07/05 completed Not Available Not Available Not Available lovastatin 20 mg tablet TAKE 1 TABLET BY MOUTH EVERY DAY EVENING MEAL active Not Available Not Available No t Available cefdinir 300 mg capsule TAKE 1 CAPSULE BY MOUTH EVERY 12 HOURS FOR 7 DAYS 01/07 completed Not Available Not Available Not Available amoxicillin 875 mg-potassiu m clavulanate 125 mg tablet TAKE 1 TABLET BY MOUTH TWICE A DAY active Not Available Not Available No t Available neomycin-po lymyxin-hyd rocort 3.5 mg-10,000 unit/mL-1 % ear drops,susp PLACE 2 DROPS IN LEFT EAR 4 TIMES A DAY active Not Available Not Available No t Available ciprofloxac in 0.3 %-dexametha sone 0.1 % ear drops,suspe nsion INSTILL 4 DROPS INTO AFFECTED EAR(S) TWICE A DAY FOR 7 DAYS active Not Available Not Available No t Available nitrofurant oin monohydrate /macrocryst als 100 mg capsule TAKE 1 CAPSULE BY MOUTH EVERY 12 HOURS 12/14 completed Not Available Not Available Not Available solifenacin 10 mg tablet TAKE 1 TABLET BY MOUTH EVERY DAY active Not Available Not Available No t Available Gavilyte-C 240 gram-22.72 gram-6.72 gram-5.84 gram oral solution USE DIRECTED 12/09 completed Not Available Not Available Not Available Tri Femynor (28) 0.18 mg(7)/0.215 mg(7)/0.25 mg(7)-35 mcg tablet TAKE 1 TABLET BY MOUTH EVERY DAY active Not Available Not Available No t Available Vitals Date Recorded Body height Body mass index (BMI) Body weight Body temperature Heart rate Oxygen saturation Oxygen saturation in Arterial blood by Pulse oximetry Systolic blood pressure Diastolic blood pressure Provider Name and Address Organization Details Last Updated DateTime 3 168.91 cm 33.2 kg/m2 85491.8 1 g 97.6 [degF] 103 /min 98 % 98 % 120 mm[Hg] 82 mm[Hg] Karuna Boo RN [facility] 3 16:54:22 Date Recorded Body height Provider Name an d Address Organization Details Last Updated DateTime 08/27/2022 168.91 cm Ruma Bustillo MA [facility] [employer] 08/27/2022 10:54:12 Date Recorded Body mass index (BMI) Body weight Oxygen saturation Oxygen saturation in Arterial blood by Pulse oximetry Heart rate Body temperature Systolic blood pressure Diastolic blood pressure Provider Name and Address Organization Details Last Updated DateTime 3 33.4 kg/m2 49844.4 g 98 % 98 % 113 /min 98.4 [degF] 131 mm[Hg] 93 mm[Hg] BREONNA Guzman [facility] [employer] [facility] 3 11:00:23 Date Recorded Body height Body mass index (BMI) Body weight Heart rate Oxygen saturation Oxygen saturation in Arterial blood by Pulse oximetry Body temperature Provider Name and Address Organization Details Last Updated DateTime 3 168.91 cm 33.2 kg/m2 11492.8 1 g 107 /min 96 % 96 % 98.4 [degF] BREONNA Guzman [facility] [employer] 3 09:08:26 Date Recorded Body mass index (BMI) Body height Oxygen saturation Oxygen saturation in Arterial blood by Pulse oximetry Heart rate Respiratory rate Body temperature Body weight Systolic blood pressure Diastolic blood pressure Provider Name and Address Organization Details Last Updated DateTime 2 33 kg/m2 168.91 cm 98 % 98 % 108 /min 16 /min 97.8 [degF] 47281.4 9 g 118 mm[Hg] 78 mm[Hg] Not Available [facility] 3 10:42:21 Date Recorded Body mass index (BMI) Provider Name and Address Organization Details Last Updated DateTime 01/10/2023 33.5 kg/m2 BRITTANIE Ram [address] [place] [address], [facility] [address], [place], [address], [facility] 01/10/2023 17:03:49 Date Recorded Body height Body temperature Body weight Heart rate Oxygen saturation Oxygen saturation in Arterial blood by Pulse oximetry Systolic blood pressure Diastolic blood pressure Provider Name and Address Organization Details Last Updated DateTime 3 168.91 cm 97.7 [degF] 46271.9 9 g 89 /min 98 % 98 % 116 mm[Hg] 70 mm[Hg] Karuna Boo RN [facility] [employer] 3 16:58:14 Social History Question Answer Notes LastModified by Organizat ion Details LastModified Time Tobacco Smoking Status Never Smoker Not Available [facility] 06/16/2022 10:40:40 Do You Have An Advance Directive? No [id number] Information not available 06/16/2022 What Is Your Level Of Caffeine Consumption? Moderate [id number] Information not available 06/16/2022 In The 14 Days Before Symptom Onset, Have You Had Close Contact With A Laboratory-confirm ed COVID-19 While That Case Was Ill? No [id number] Information not available 06/16/2022 In The 14 Days Before Symptom Onset, Have You Had Close Contact With A Person Who Is Under Investigation For COVID-19 While That Person Was Ill? No [id number] Information not available 06/16/2022 What Type Of Diet Are You Following? REGULAR [id number] Information not available 06/16/2022 Have There Been Any Changes To Your Family Or Social Situation? No [id number] Information not available 06/16/2022 Are There Any Guns Present In Your Home? No [id number] Information not available 06/16/2022 Do You Use Insect Repellent Routinely? 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 No Information not available 07/02/2022 What Was The Date Of Your Most Recent Tobacco Screening? 10/08/2022 [email or web address] Information not available 10/08/2022 What Is Your Relationship Status? [id number] Information not available 06/16/2022 Do You Use Your Seat Belt Or Car Seat Routinely? Yes [id number] Information not available 06/16/2022 Do You Have Smoke And Carbon Monoxide Detectors In Your Home? Yes [id number].[id number] 3101 Information not available 06/16/2022 Do You Use Sunscreen Routinely? Yes [id number].[id number] 1713 Information not available 06/16/2022 Have You Recently Traveled Abroad? No MIGRATION.[id number] 3447 Information not available 06/16/2022 Do You Have Any Dietary Restrictions? No MIGRATION.[id number] 1042 Information not available 06/16/2022 Sex: Unknown Functional Status Question Answer Note LastModified by Organizat ion Details LastModified Time Do you use any illicit or recreational drugs? No [id number] Information not available 06/16/2022 Do you or have you ever used any other forms of tobacco or nicotine? No [id number] 35 Information not available 06/16/2022 What is your level of alcohol consumption? None [id number] 35 Information not available 06/16/2022 What is your exercise level? None [id number] 35 Information not available 06/16/2022 Mental Status None recorded. Family History Relationship Description Onset Age of this Age Resolved Age Notes LastModified by Organization Details LastModified Time Maternal Grandmother Malignant tumor of breast [id number] Not available 06/16/2022 10:41:37 Father Hyperlipidem ia [id number] Not available 06/16/2022 10:41:37 Father Hypertensive disorder [id number] Not available 06/16/2022 10:41:37 Unspecified Relation Heart disease [email or web address] Not available 2022 10:56:27 Father Kidney stone [email or web address] Not availa ble 08/27/2022 10:56:41 Medical History Condition Response HIGH CHOLESTEROL / HYPERLIPIDEMIA Y HYPOTHYROIDISM Y OBESITY Y ENT Y Gynecological History Statement/Question Response Menses Monthly Y Date of Last Pap 05/02/2018 Date of Last Mammogram 02/27/2019 Current Control Method BCPs Date of Last Colonoscopy 12/07/2019 Sexually Active? Y Obstetrics History GPAL:G 2 P 0 0 0 1 Type Value Living 1 Total 2 Immunizations Vaccine Type Date Status Note Provider Nam e and Address Organization Details Recorded Time COVID-19, mRNA, LNP-S, PF, 30 mcg/0.3 mL dose 11/14/2020 completed Not Available [employer] 10:47:28 Past Encounters Encounter ID Performer Location Encounter Start Date Encounter Closed Date Diagnosis/Indication Diagnosis SNOMED-CT Code Diagnosis ICD10 Code Diagnosis Note [id number] BRITTANIE Ram [facility] [place] [address] [address], [address] [place] [phone] 12/09/2020 00:00:00 12/14/2020 17:42:15 [id number] S_[facility] Surgery [address] [facility], [address] [place] [address] 02/23/2021 00:00:00 02/23/2021 14:36:44 [id number] [facility] [place] [address] [address], [address] [place] [phone] 12/15/2021 00:00:00 12/15/2021 18:57:47 [id number] BRITTANIE Ram [facility] [place] [address] [place] [address] 07/05/2022 16:39:50 07/05/2022 17:18:32 Hyperlipidemia 13148397 E78.5 stable on atorvastat in 80mg daily. fasting labs due in july. Hypothyroidism 62289775 E03.9 stable on levothyrox ine 137mcg daily. repeat labs in july Long-term drug therapy 000261187 Z79.899 Gastroesop hageal reflux disease without esophagitis 224632854 K21.9 stable on PRN OTC medication . Impaired g lucose tolerance 8684594 R73.03 following A1c [id number] Noah Calles NP [facility] [address] [place] [phone] 08/27/2022 10:28:57 08/27/2022 11:20:09 Increased frequency of urination 460846821 R35.0 UA neg for infection. PVR low. Discussed avoiding bladder irritants such as carbonated beverages, caffeine, spicy/acid ic foods, alcohol, and/or tobacco. Discussed meds vs PFPT. Patient elects trial of meds. Will start solifenaci n. Medication administra tion, use, and side effects discussed. Follow-up in 6 weeks. Abnormal urinalysis 1672 06417 R82.90 tr blood on urine dip. We discussed possible etiologies of hematuria including infection, stones, cancer/mal ignancy, benign tumors, and certain anatomic abnormalit ies. Checking culture and micro ua. If micro positive without infection will trigger hematuria work-up with upper tract imaging and cysto. [id number] TEMO [facility] [address] [address] 10/08/2022 08:49:12 10/08/2022 09:17:41 Increased frequency of urination 312123007 R35.0 UA neg for infection. PVR low. Discussed avoiding bladder irritants such as carbonated beverages, caffeine, spicy/acid ic foods, alcohol, and/or tobacco. Discussed meds vs PFPT. Patient elects trial of meds. Will start solifenaci n. Medication administra tion, use, and side effects discussed. Follow-up in 6 weeks. 10/08/2022 Continue Solifenaci n. Follow-up in three months--so matteo if worse. Abnormal urinalysis [id number] R82.90 tr blood on urine dip. We discussed possible etiologies of hematuria including infection, stones, cancer/mal ignancy, benign tumors, and certain anatomic abnormalit ies. Checking culture and micro ua. If micro positive without infection will trigger hematuria work-up with upper tract imaging and cysto. 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 Will send urine for micro today. [id number] BRITTANIE Ram [facility] [address] [place] [address] 01/10/2023 16:34:39 01/10/2023 17:18:32 Hyperlipidemia [id number] E78.5 stable on atorvastat in 80mg daily. fasting labs due Hypothyroidism [id number] E03.9 stable on levothyrox ine 137mcg daily. repeat labs due Impaired g lucose tolerance [id number] R73.03 following A1c Gastroesop hageal reflux disease without esophagitis [id number] K21.9 stable on PRN OTC medication . Long-term drug therapy [id number] Z79.899 CBC and CMP due Adult heal th examination [id number] Z00.01 well exam completed Health Concerns Section Related Observation LastModified by Organization Detai ls LastModified Time None Recorded Concern Status LastModified by Organization Details LastModified Time None Recorded Advance Directives Directive N: Payers Insurance Date Sequence Insurance Name Policy Number Policy Mosher Covered Member ID Mosher Member ID Guarantor Name 01/17/2023 1 [facility] Clarissa Cortés [id number] Clarissa Cortés Notes Date Note Type Note Provider Name and Address Organization Details Recorded Time 12/16/19 22 text/ht ml HyperlipidemiaReported bypatient.Duration:chronic Control:usually well controlled Current Therapy:currently taking: (atorvastatin 80mg) Compliance:compliant;noncomplian t with diet;does not exercise Complications:no coronary artery disease; no peripheral artery disease; no cardiovascular diseaseHypothyroidismReported bypatient.Quality:not changing Duration:constant Onset/Timing:still present Context/Risk:normal thyroid levels; no history of head or neck radiation during childhood; no history of thyroid disease; no history of hyperthyroidism; no excess iron exposure;history of hypothyroidism;female gender Modifying Factors:medication Exerciseno exercise Associated Symptoms:no cold intolerance; no heat intolerance; no weight loss; no weight gain; no double vision; no dry eyes; no hoarseness; no difficulty swallowing; no neck masses; no deepening of the voice; no fast heart rate; no increased blood pressure; no palpitations; no chest pain; no chest tightess or pressure; no constipation; no diarrhea; no vomiting; no decreased appetite; no loose stools; no irregular menstrual periods; no excessive sweating; no joint pain; no numbness; no tingling of the hands or feet; no dry skin; no tremor; no nervousness; no anxiety; no depression; no fatigue; no sleep difficulties; no skin changes; no hair changes Not Available [place] [facility] 12/15/2021 18:57:47 07/06/19 23 text/ht ml HyperlipidemiaReported bypatient.Control:usually well controlled; improving; at goal Compliance:compliant; compliant with diet; exercises Complications:no coronary artery disease; no peripheral artery disease; no cardiovascular diseaseHypothyroidismReported bypatient.Onset/Timing:better Context/Risk:normal thyroid levels; no history of head or neck radiation during childhood; no history of thyroid disease; no history of hypothyroidism; no history of hyperthyroidism; no excess iron exposure Exercisegets exercise Associated Symptoms:no cold intolerance; no heat intolerance; no weight loss; no weight gain; no double vision; no dry eyes; no hoarseness; no difficulty swallowing; no neck masses; no deepening of the voice; no fast heart rate; no increased blood pressure; no palpitations; no chest pain; no chest tightess or pressure; no constipation; no diarrhea; no vomiting; no decreased appetite; no loose stools; no irregular menstrual periods; no excessive sweating; no joint pain; no numbness; no tingling of the hands or feet; no dry skin; no tremor; no nervousness; no anxiety; no depression; no fatigue; no sleep difficulties; no skin changes; no hair changesReflux/GERDReported bypatient.Severity:improving Context:non-smoker; no drug/alcohol abuse; no drug alcohol withdrawal; not related to food/drink Associated Symptoms:no frequent coughing; no feeling of fullness/mass in throat; no hoarseness; no food getting stuck; no belching/burping; no nausea; no vomiting; not vomiting blood; no regurgitation; no shortness of breath; no chest pain; no heartburn; no difficulty swallowing; no pain when swallowing; no bad taste; no decreased appetite; no weight loss; no black/tarry stools; no fatigue; no throat pain BRITTANIE Ram [address] [address], [place], [address], [facility] [place] [facility] Guanri 07/16/2022 10:47:58 08/28/19 text/ht ml 3Patient presents to the office with c/o urinary frequency. States that symptoms have been present for months. She voids about every 1 hour during the day and if she drinks water she has to urinate within about 10 minutes. She saw her pcp and thought she had a uti and has been on two rounds of abx without improvement. Culture from 06/2022 was negative. She is a non smoker. Denies blood thinner use. Ua- neg le, neg nitrite, tr bloodPVR- 58cc Noah Calles NP [address] [address], [place], [address], [facility] [employer] [facility] 08/30/2022 10:45:42 10/09/19 23 text/ht ml 3Patient presents to the office with c/o urinary frequency. States that symptoms have been present for months. She voids about every 1 hour during the day and if she drinks water she has to urinate within about 10 minutes. She saw her pcp and thought she had a uti and has been on two rounds of abx without improvement. Culture from 06/2022 was negative. She is a non smoker. Denies blood thinner use. Ua- neg le, neg nitrite, tr bloodPVR- 58cc 3Patient presents to the office for 6 week follow-up. She has been taking solifenacin 10 mg daily. She reports that she is now able to go 2-3 hours in between urinations. She will occasionally wake up x1 a night. She reports some dry mouth and constipation, but they are not bothersome enough to warrant a change in therapy. UA- neg le, neg nit, tr bloodPVR- 63cc Noah Calles NP [address] [facility], [address] [address], [place], [address], [place] [facility] [place] [facility] 10/08/2022 09:20:25 01/11/20 23 text/ht ml HyperlipidemiaReported bypatient.Control:usually well controlled; improving; at goal Compliance:compliant; compliant with diet; exercises Complications:no coronary artery disease; no peripheral artery disease; no cardiovascular diseaseHypothyroidismReported bypatient.Onset/Timing:better Context/Risk:normal thyroid levels; no history of head or neck radiation during childhood; no history of thyroid disease; no history of hypothyroidism; no history of hyperthyroidism; no excess iron exposure Exercisegets exercise Associated Symptoms:no cold intolerance; no heat intolerance; no weight loss; no weight gain; no double vision; no dry eyes; no hoarseness; no difficulty swallowing; no neck masses; no deepening of the voice; no fast heart rate; no increased blood pressure; no palpitations; no chest pain; no chest tightess or pressure; no constipation; no diarrhea; no vomiting; no decreased appetite; no loose stools; no irregular menstrual periods; no excessive sweating; no joint pain; no numbness; no tingling of the hands or feet; no dry skin; no tremor; no nervousness; no anxiety; no depression; no fatigue; no sleep difficulties; no skin changes; no hair changesReflux/GERDReported bypatient.Severity:improving Context:non-smoker; no drug/alcohol abuse; no drug alcohol withdrawal; not related to food/drink Associated Symptoms:no frequent coughing; no feeling of fullness/mass in throat; no hoarseness; no food getting stuck; no belching/burping; no nausea; no vomiting; not vomiting blood; no regurgitation; no shortness of breath; no chest pain; no heartburn; no difficulty swallowing; no pain when swallowing; no bad taste; no decreased appetite; no weight loss; no black/tarry stools; no fatigue; no throat pain wellness BRITTANIE Ram [address], [address] [address], [place], [address], [place] [facility] 01/16/2023 01:00:57 OBGyn Episode No OBEpisode recorded.
[2024-09-27 22:17] VITALS: BP 129/77; PULSE 66; RESP 16; TEMP 36.4; O2SAT 100
[2024-09-27 23:10] LABS: BEDSIDEPREGUCG Negative (Negative)
[2024-09-27] MEDS: ONDANSETRON INJ 4 MG/2 ML VIAL IV PUSH (23:12)
[2024-09-27] MEDS: SODIUM CHLORIDE 0.9% IV 1,000 ML 999 ML IV CONT (23:13)
[2024-09-27] MEDS: KETOROLAC 30 MG/ML VIAL (*BKC) IV PUSH (23:14)
[2024-09-27 23:29] LABS: Basophils Percent Auto 0.3 % (0.2-1.2); Eosinophils Percent Auto 0.2 % (0-4.4); Hematocrit 39.1 % (37.0-47.0); Hemoglobin 12.6 g/dL (12.0-15.0); Immature Granulocyte Absolute 0.04 K/mm3 (0.00-0.031); Immature Granulocyte Percent A 0.4 % (0-0.5); Lymphocytes Absolute Auto 1.02 K/mm3 (0.9-3.2); Lymphocytes Percent Auto 10.7 % (18.3-44.2); Mean Corpuscular HGB Conc 32.2 g/dl (32-36); Mean Corpuscular Hemoglobin 29.2 pg (26-34); Mean Corpuscular Volume 90.5 fl (80-100); Mean Platelet Volume 9.6 fl (7.4-10.4); Monocytes Absolute Auto 0.4 K/mm3 (0.1-0.6); Monocytes Percent Auto 3.8 % (2.6-8.5); Neutrophils Absolute Auto 8.1 K/mm3 (1.3-6.7); Neutrophils Percent Auto 84.6 % (45.5-73.1); Platelet Count Result 187 k/mm3 (150-375); Red Blood Count 4.32 M/mm3 (4.2-5.4); Red Cell Distribution Width 13.1 % (11.5-14.5); White Blood Count 9.5 K/mm3 (4.5-10.0)
[2024-09-27 23:44] LABS: Sodium 137 mmol/L (137-145)
[2024-09-27 23:45] LABS: Alanine Aminotransferase 21 U/L (6-35); Albumin Level 4.5 g/dL (3.5-5.1); Alkaline Phosphatase 66 U/L (38-126); Anion Gap 6 mmol/L (4-12); Aspartate Amino Transferase 30 U/L (14-36); Bilirubin,Total 0.7 mg/dL (0.2-1.3); Blood Urea Nitrogen 17 mg/dL (7-17); Calcium 9.2 mg/dL (8.4-10.2); Carbon Dioxide 24 mmol/L (22-30); Chloride 107 mmol/L (98-107); Estimated CRCL calculation 76 ml/min; Estimated Glomerular Filt Rate > 60; Glucose 165 mg/dL (65-110); Potassium 4.1 mmol/L (3.4-5.0); Total Protein 7.6 g/dL (6.3-8.2)
[2024-09-27 23:53] LABS: Bacteria Urine None Seen /hpf; Non Pathogenic Casts 0-2; Squamous Epithelial Cell Urine Moderate /hpf (Few)
[2024-09-27 23:59] LABS: Add Urine Microscopic? NO; Appearance Urine Clear (Clear); Color Urine Yellow (Yellow); pH Urine 6.5 (5.0-9.0)
[2024-09-28] LABS: Bilirubin Urine Negative (Negative); Blood Urine Trace-intact (Negative); Glucose Urine UA Trace mg/dL (Negative); Ketones Urine Trace mg/dL (Negative); Leukocyte Esterase Ur Negative LEU/UL (Negative); Nitrate Urine Negative (Negative); Protein Urine Negative (Negative); Specific Grav Ur 1.025 (1.001-1.035)
--- NOTE | 2024-09-28 00:07 | ED.GENADULT ---
HPI - General Adult General Chief complaint: Back Pain/Injury Stated complaint: L lower back pain Time Seen by Provider: 09/27/24 22:09 History of Present Illness HPI narrative: Patient is a 43-year-old female who presents ER with sudden onset left-sided back pain and abdominal pain. Occurred after swimming. Had increased pain with associated nausea. No urinary frequency urgency or dysuria. No history kidney stones. Did not fall or feel like she is over exerting herself to cause a back strain. No alleviating factors. Related Data Home Medications ?Medication ?Instructions ?Recorded ?Confirmed ?Last Taken ?Type atorvastatin 80 mg tablet 80 mg PO DAILY 12/07/22 01/24/24 Unknown History levothyroxine 137 mcg capsule 137 mcg PO DAILY 12/07/22 01/24/24 Unknown History Allergies Allergy/AdvReac Type Severity Reaction Status Date / Time No Known Allergies Allergy Unknown Verified 09/27/24 22:07 Review of Systems Review of Systems: All systems reviewed & are unremarkable except as noted in HPI and below Constitutional: Constitutional: Reports no additional constitutional complaints Cardiovascular: Cardiovascular: Reports no additional cardiovascular complaints Respiratory: Respiratory: Reports no additional respiratory complaints Gastrointestinal: Gastrointestinal: Reports no additional gastrointestinal complaints [facility] Past Medical History Medical History Impacted cerumen of both ears Acquired hypothyroidism Decreased hearing of both ears Obesity Hypothyroidism Hypercholesterolemia Surgical History Surgical History Hx of tympanostomy tubes Family History Family History Father Hypertension Grandparent Diabetes mellitus Hypertension Bone cancer Social History Social History Social History: Caffeine-coffee daily Smoking status: Never smoker Alcohol intake: never Substance use: never Substance use type: does not use Lack of Transportation: No Lack of Food: Never True Current Housing: I Have Housing Concerned About Future Housing: No Difficulty Paying Gas/Electric Bills: No Difficulty Paying for Meds: No Currently Unemployed: No Education: High School Diploma/GED Difficulty w/ Childcare or Family Care: No Living arrangements: with family Gender identity (if verbalized by the patient): Female Agree to blood products: Yes Exam Narrative: GENERAL: Well-appearing, well-nourished, and in no acute distress. HEAD: Normocephalic, atraumatic. ENT: Mucous membranes moist. CHEST: Clear to auscultation. No respiratory distress. HEART: Regular rate and rhythm. Normal peripheral pulses. ABDOMEN: Soft, nontender, nondistended. No CVA tenderness. Back: No reproducible midline or paraspinal muscle tenderness. EXTREMITIES: Normal range of motion. No edema. SKIN: Warm, dry, no rash. NEURO: Alert and oriented x3. PSYCH: Normal mood and affect. Course Course Emergency Course: Patient educated about lab and imaging results. Discussed outpatient treatment plan. Verbalized understanding. Discharge. Urine not felt to be contaminated with 6-10 white blood cells and moderate squamous epithelial cells and no bacteria seen. Vital Signs Vital signs: Vital Signs Temperature 97.6 F 09/27/24 22:17 Pulse Rate 66 09/27/24 22:17 Respiratory Rate 16 09/27/24 22:17 Blood Pressure 129/77 09/27/24 22:17 Pulse Oximetry 100 09/27/24 22:17 Oxygen Delivery Room Air 09/27/24 22:17 Temperature 97.6 F 09/27/24 22:17 Pulse Rate 66 09/27/24 22:17 Respiratory Rate 16 09/27/24 22:17 Blood Pressure 129/77 09/27/24 22:17 Pulse Oximetry 100 09/27/24 22:17 Oxygen Delivery Room Air 09/27/24 22:17 Medical Decision Making Vital Signs Vital Signs: Vital Signs Temperature 97.6 F 09/27/24 22:17 Pulse Rate 66 09/27/24 22:17 Respiratory Rate 16 09/27/24 22:17 Blood Pressure 129/77 09/27/24 22:17 Pulse Oximetry 100 09/27/24 22:17 Oxygen Delivery Room Air 09/27/24 22:17 Temperature 97.6 F 09/27/24 22:17 Pulse Rate 66 09/27/24 22:17 Respiratory Rate 16 09/27/24 22:17 Blood Pressure 129/77 09/27/24 22:17 Pulse Oximetry 100 09/27/24 22:17 Oxygen Delivery Room Air 09/27/24 22:17 Lab Data 09/27/24 23:11 09/27/24 23:11 Labs: Lab Results 09/27/24 09/27/24 09/27/24 Range/Units 23:01 23:06 23:11 WBC 9.5 (4.5-10.0) K/mm3 RBC 4.32 (4.2-5.4) M/mm3 Hgb 12.6 (12.0-15.0) g/dL Hct 39.1 (37.0-47.0) % MCV 90.5 (80-100) fl MCH 29.2 (26-34) pg MCHC 32.2 (32-36) g/dl RDW 13.1 (11.5-14.5) % Plt Count 187 (150-375) k/mm3 MPV 9.6 (7.4-10.4) fl Immature Gran % (Auto) 0.4 (0-0.5) % Neut % (Auto) 84.6 H (45.5-73.1) % Lymph % (Auto) 10.7 L (18.3-44.2) % [place] % (Auto) 3.8 (2.6-8.5) % Eos % (Auto) 0.2 (0-4.4) % Baso % (Auto) 0.3 (0.2-1.2) % Lymph # (Auto) 1.02 (0.9-3.2) K/mm3 [place] # (Auto) 0.4 (0.1-0.6) K/mm3 Eos # (Auto) 0.0 (0-0.3) K/mm3 Baso # (Auto) 0.0 (0.0-0.1) K/mm3 Abs Immat Gran (auto) 0.04 H (0.00-0.031) K/mm3 Absolute Neuts (auto) 8.1 H (1.3-6.7) K/mm3 Absolute Nucleated RBC 0.000 (0.0-0.012) K/mm3 Nucleated RBC % 0.0 (0.0-0.2) % Sodium 137 (137-145) mmol/L Potassium 4.1 (3.4-5.0) mmol/L Chloride 107 (98-107) mmol/L Carbon Dioxide 24 (22-30) mmol/L Anion Gap 6 (4-12) mmol/L BUN 17 (7-17) mg/dL Creatinine 0.96 (0.7-1.0) mg/dL Estim Creat Clear Calc 76 ml/min Estimated GFR > 60 (59 - ) Glucose 165 H (65-110) mg/dL Calcium 9.2 (8.4-10.2) mg/dL Total Bilirubin 0.7 (0.2-1.3) mg/dL AST 30 (14-36) U/L ALT 21 (6-35) U/L Alkaline Phosphatase 66 (38-126) U/L Total Protein 7.6 (6.3-8.2) g/dL Albumin 4.5 (3.5-5.1) g/dL Urine Color Yellow (Yellow) Urine Appearance Clear (Clear) Urine pH 6.5 (5.0-9.0) Ur Specific [place] 1.025 (1.001-1.035) Urine Protein Negative (Negative) mg/dL Urine Glucose (UA) Trace H (Negative) mg/dL Urine Ketones Trace H (Negative) mg/dL Ur Blood (Man) Trace-intact H (Negative) Urine Nitrate Negative (Negative) Urine Bilirubin Negative (Negative) Urine Urobilinogen 1.0 (<2.0) mg/dL Leukocyte Esterase Rfl Negative (Negative) ALTA/UL Urine RBC 3-5 H (0-2) /hpf Urine WBC 6-10 H (0-3) /hpf Ur Squamous Epith Cells Moderate (Few) /hpf Urine Bacteria None seen /hpf Urine Casts 0-2 POC Urine HCG, Qual Negative (Negative) Imaging Data Radiologist's impression: ITS Impressions Abdomen/Pelvis CT 09/27/24 23:45 IMPRESSION: 1. Left lower ureteric stone with moderate hydronephrotic changes. 2. Stones in the left kidney. 3. Hepatomegaly. Discharge Plan Discharge Clinical Impression: Ureterolithiasis Patient Disposition: Home Condition: Stable Instructions: Kidney Stones (ED) Additional Instructions: Return to the emergency department if you develop severe abdominal pain, severe nausea and vomiting to the point where you are unable to keep down fluids, if you develop chest pain or difficulty breathing, blood in your stool, dizziness or fainting, or if you develop any other new or concerning symptoms as these could be signs of more serious medical illness. Try to stay well hydrated. Patient Language: Finnish Prescriptions: New hydrocodone-acetaminophen 5-325 mg tablet 1 tablet PO Q6H PRN (Reason: pain) Qty: 12 0RF tamsulosin 0.4 mg capsule 0.4 mg PO DAILY Qty: 5 0RF ondansetron 4 mg tablet,disintegrating 4 mg PO Q6H PRN (Reason: nausea and vomiting) Qty: 10 0RF No Action atorvastatin 80 mg tablet 80 mg PO DAILY levothyroxine 137 mcg capsule 137 mcg PO DAILY Follow-up/Referrals: Jarrod Paredes MD [Physician] - 1 Week Lazaro,JUNE Constantino [Primary Care Provider] -
[2024-09-28 00:25] VITALS: BP 145/87; PULSE 85; RESP 16; O2SAT 100
== END 2024-09-28 00:25 | disposition home or self-care (01) ==
PROVIDERS: Emergency Provider Emergency Medicine; PCP Physician Assistant
DX: N20.2 Calculus of kidney with calculus of ureter (principal); E03.9 Hypothyroidism, unspecified; E78.00 Pure hypercholesterolemia, unspecified; R16.0 Hepatomegaly, not elsewhere classified; Z79.899 Other long term (current) drug therapy
CPT/HCPCS: 36415; 74176; 80053; 81003; 81025; 85025; 96361; 96374; 96375; 99284; J1885; J2405; J7030